=== PATIENT | male | born 1995 | race Caucasian/White ===

== ENCOUNTER 2018-05-25 10:02 | Emergency (ER) | payer SELFPAY ==
--- NOTE | 2018-05-25 10:38 | EDPHY ---
H & P Stated Complaint: left hand injury Time Seen by Provider: 05/25/18 10:29 HPI/ROS: Chief Complaint: Hand injury HPI: 23-year-old male sustained a left hand injury 3 days ago when a heavy bed that he was moving fell onto his left hand. He has had pain and bruising to his mid hand since that time. It hurts to make a fist. No prior injuries. No other injuries. ROS: 10 systems were reviewed and were negative except those elements noted in the HPI. PMH: Social History: No smoking Family History: non-contributory Physical Exam: General: Awake, alert, no acute distress Left hand:. Patient has ecchymosis over his distal 3rd metacarpal and the MCP joint. There is no deformity. He has tenderness on the dorsal aspect of the distal 3rd metacarpal. No palmar tenderness. 2+ radial ulnar pulses. Capillary refills less than 3 sec. Sensation is intact in the radial, median, and ulnar nerve distribution. Skin: No rash - Personal History Current Tetanus/Diphtheria Vaccine: Yes Current Tetanus Diphtheria and Acellular Pertussis (TDAP): Yes - Medical/Surgical History Other PMH: appendectomy - Social History Smoking Status: Never smoked Constitutional: Initial Vital Signs Temperature (C) 36.8 C 05/25/18 10:13 Heart Rate 82 05/25/18 10:13 Respiratory Rate 18 05/25/18 10:13 Blood Pressure 131/61 H 05/25/18 10:13 O2 Sat (%) 98 05/25/18 10:13 O2 Delivery Mode Room Air Allergies/Adverse Reactions: ondansetron Allergy (Verified 05/25/18 10:12) Home Medications: Medication Instructions Recorded NK [No Known Home Meds] 05/25/18 Medical Decision Making - Diagnostics Imaging Results: Imaging Impressions Hand X-Ray 05/25/18 10:18 Impression: No acute osseous findings. Departure - Departure Disposition: Home, Routine, Self-Care Clinical Impression: Hand contusion Condition: Good Instructions: Contusion in Adults (ED) Additional Instructions: Take ibuprofen, 600 mg every 8 hr. You may alternate with acetaminophen, 1000 mg every 8 hr. Follow up with workman's Comp in 3-4 days if symptoms are not improving. Referrals: Work Comp Referral [facility] [Outside] - As per Instructions
[2018-05-25 11:20] VITALS: BP 135/67
== END 2018-05-25 11:20 | disposition home or self-care (01) ==
LOC: CED 10:02
DX: S60.222A Contusion of left hand, initial encounter (principal); W23.0XXA Caught, crushed, jammed, or pinched between moving objects, initial encounter; Y92.9 Unspecified place or not applicable; Y93.9 Activity, unspecified; Y99.9 Unspecified external cause status
CPT/HCPCS: 73130-PO